=== PATIENT | male | born 1965 | race Caucasian/White ===

== ENCOUNTER → 2018-05-05 | Outpatient (CLI) | payer MEDICARE, OTHER ==
[2018-05-06 16:12] VITALS: BMI 25.9
== END ==
LOC: MNTWWP 12:43
PROVIDERS: ATTEND Family Medicine
DX: R73.09 Other abnormal glucose (principal)
CPT/HCPCS: 97802

== ENCOUNTER 2024-03-10 08:19 | Emergency (ER) | payer MEDICARE, OTHER ==
[2024-03-10 08:25] VITALS: RESP 18; TEMP 98.8
[2024-03-10] MEDS: ONDANSETRON 4 MG/2 ML VIAL IVP STA (08:36)
[2024-03-10] MEDS: SODIUM CHLORIDE 0.9% 1,000 ML IV STA ×2 (08:36→09:59)
[2024-03-10] MEDS: PANTOPRAZOLE 40 MG/10 ML VIAL IVP STA (08:39)
[2024-03-10 08:49] LABS: Basophils % (A) 0 %; Eosinophils # (A) 0.1 k/uL (0-0.7); Eosinophils % (A) 1 %; HCT 43.5 % (39.0-53.0); HGB 14.3 gm/dL (13.0-17.5); Lymphocytes # (A) 0.5 k/uL (1.0-4.8); Lymphocytes % (A) 3 %; MCH 29.8 pg (25.0-35.0); MCHC 32.8 g/dL (31.0-37.0); MCV 90.7 fL (80.0-100.0); Mean Platelet Volume 7.7; Monocytes # (A) 0.5 k/uL (0-1.0); Monocytes % (A) 3 %; Neutrophils # (A) 14.7 k/uL (1.3-7.7); Neutrophils % (A) 92 %; Platelet Count 273 k/uL (150-450); RDW 12.3 % (11.5-15.5); WBC 15.9 k/uL (3.8-10.6)
[2024-03-10 08:56] LABS: ALT 15 U/L (4-49); AST 17 U/L (17-59); African American GFR (CKD) >90 (>60 ml/min/1.73 sqM); Alkaline Phosphatase 92 U/L (38-126); Amylase 44 U/L (30-110); Anion Gap 8 mmol/L; Blood Urea Nitrogen 18 mg/dL (9-20); Calcium 8.8 mg/dL (8.4-10.2); Carbon Dioxide 25 mmol/L (22-30); Chloride 105 mmol/L (98-107); Glucose 160 mg/dL (74-99); Lipase 172 U/L (23-300); Non-African American GFR(CKD) >90 (>60 ml/min/1.73 sqM); Potassium 3.1 mmol/L (3.5-5.1); Sodium 138 mmol/L (137-145); Total Bilirubin 0.3 mg/dL (0.2-1.3); Total Protein 6.6 g/dL (6.3-8.2)
[2024-03-10 09:06] LABS: INR 0.9 (<1.2); Prothrombin Time 9.9 sec (10.0-12.5)
--- NOTE | 2024-03-10 09:11 | ED ---
General Adult HPI - General Chief complaint: Nausea/Vomiting/Diarrhea Stated complaint: NVD Time Seen by Provider: 03/10/24 08:19 Source: patient, EMS, RN notes reviewed, old records reviewed Mode of arrival: EMS - History of Present Illness Initial comments: Patient is a 58-year-old male who presents emergency department complaining of nausea, vomiting, diarrhea for 1 to 2 days. Endorses some mild abdominal discomfort with it. Patient is legally blind. Denies any urinary complaints. Denies chest pain or shortness of breath. No fevers or cough. Denies any si gnificant abdominal pain but just endorses generalized discomfort. As he is blind unknown if his diarrhea or vomit has blood in it. Is not on blood thinners. History of a cholecystectomy as well as hernia repair. EMS noted a rash however it seems to have resolved. - Related Data Home Medications Medication Instructions Recorded Confirmed Cyclobenzaprine [Flexeril] 20 mg PO HS 12/16/13 03/10/24 Imipramine HCl [Tofranil] 50 mg PO HS 12/16/13 03/10/24 Ascorbic Acid [Vitamin C] 1,000 mg PO DAILY 03/10/24 03/10/24 Cholecalciferol [Vitamin D3 (25 50 mcg PO DAILY 03/10/24 03/10/24 Mcg = 1000 Iu)] Pantoprazole [Protonix] 40 mg PO DAILY 03/10/24 03/10/24 Zinc Gluconate [Zinc] 50 mg PO DAILY 03/10/24 03/10/24 Allergies Allergy/AdvReac Type Severity Reaction Status Date / Time codeine AdvReac Vomiting Verified 03/10/24 10:42 Review of Systems ROS Statement: Those systems with pertinent positive or pertinent negative responses have been documented in the HPI. Review of Systems: CONST: Denies fever EYES: Denies blurry vision ENT: Denies nasal congestion C/V: Denies Chest pain RESP: Denies shortness of breath GI: Endorses abdominal pain, nausea, vomiting, diarrhea : Denies dysuria SKIN: Denies rash. MSK: Denies joint pain. NEURO: Denies headache ROS Other: All systems not noted in ROS Statement are negative. Past Medical History Past Medical History: Cancer, CVA/TIA, GERD/Reflux, Prostate Disorder Additional Past Medical History / Comment(s): CVA 2010, occ. arrythmia. slight loss of short term memory, hypoglycemia. prostate cancer (tx with radiation seeds), urinary leakage at night(wears depends) History of Any Multi-Drug Resistant Organisms: None Reported Past Surgical History: Cholecystectomy, Hernia Repair Past Anesthesia/Blood Transfusion Reactions: Motion Sickness Past Psychological History: Depression Smoking Status: Never smoker Past Alcohol Use History: None Reported Past Drug Use History: None Reported - Past Family History Brother(s) Family Medical History: Cancer Mother Family Medical History: Cancer Additional Family Medical History / Comment(s): liver General Exam - General Exam Comments Initial Comments: General: Appears in no acute distress. HEAD: Normal with no signs of head trauma. EYES: Patient legally blind. ENT: Hearing grossly intact, normal oropharynx. Mildly dry mucous membranes. RESPIRATORY: Clear breath sounds bilaterally. No wheezes, rales, or rhonchi. C/V: Regular rate and rhythm. S1 and S2 auscultated, no edema, peripheral pulses 2+ and intact throughout ABD: Abd is soft, nontender, nondistended. No real guarding. No rebound tenderness. No peritoneal signs. EXT: Normal range of motion, no obvious deformity SKIN: No rashes or lesions observed on exposed skin. NEURO: Alert and oriented x 4. Course Vital Signs 03/10/24 03/10/24 03/10/24 08:19 10:00 10:53 Temperature 98.8 F Pulse Rate 85 94 90 Respiratory 18 18 18 Rate Blood Pressure 124/98 134/93 135/92 O2 Sat by Pulse 99 95 98 Oximetry Medical Decision Making - Medical Decision Making Was pt. sent in by a medical professional or institution (, PA, A[employer], urgent care, hospital, or shelter...) When possible be specific @ -No Did you speak to anyone other than the patient for history (EMS, parent, family, police, friend...)? What history was obtained from this source @ -No Did you review nursing and triage notes (agree or disagree)? Why? @ -I reviewed and agree with nursing and triage notes Were old charts reviewed (outside hosp., previous admission, EMS record, old EKG, old radiological studies, urgent care reports/EKG's, shelter records)? Report findings @ -No old charts were reviewed Differential Diagnosis (chest pain, altered mental status, abdominal pain women, abdominal pain men, vaginal bleeding, weakness, fever, dyspnea, syncope, headache, dizziness, GI bleed, back pain, seizure, CVA, palpatations, mental health, musculoskeletal)? @ -Differential Abdominal Pain Men: Appendicitis, cholecystitis, diverticulosis, ischemic bowel, pancreatitis, hepatitis, UTI, gastroenteritis, AAA, incarcerated hernia, bowel obstruction, constipation, inflammatory bowel, hepatitis, peptic ulcer disease, splenic infarction, perforated viscus, testicular torsion, this is not meant to be an all-inclusive list EKG interpreted by me (3pts min.). @ -As above X-rays interpreted by me (1pt min.). @ -None done CT interpreted by me (1pt min.). @ -CT revealed stool throughout the bowels however no evidence of obstruction. U/S interpreted by me (1pt. min.). @ -None done What testing was considered but not performed or refused? (CT, X-rays, U/S, labs)? Why? @ -None What meds were considered but not given or refused? Why? @ -None Did you discuss the management of the patient with other professionals (professionals i.e. , PA, [employer], lab, RT, psych nurse, renal social worker, capacity planner, teacher, fire management officer, director of casework department)? Give summary @ -No Was smoking cessation discussed for >3mins.? @ -No Was critical care preformed (if so, how long)? @ -No Were there social determinants of health that impacted care today? How? (Homelessness, low income, unemployed, alcoholism, drug addiction, transportation, low edu. Level, literacy, decrease access to med. care, group home, rehab)? @ -No Was there de-escalation of care discussed even if they declined (Discuss DNR or withdrawal of care, Hospice)? DNR status @ -No What co-morbidities impacted this encounter? (DM, HTN, Smoking, COPD, CAD, Cancer, CVA, ARF, Chemo, Hep., AIDS, mental health diagnosis, sleep apnea, morbid obesity)? @ -None Was patient admitted / discharged? Hospital course, mention meds given and route, prescriptions, significant lab abnormalities, going to OR and other pertinent info. @ -Patient presents with nausea, vomiting, diarrhea. Mild abdominal discomfort. Will obtain screening EKG, CT abdomen/pelvis as well as abdominal laboratory studies. Patient was in agreement this plan. Vital signs within acc eptable limits. Imaging returned unremarkable. Laboratory studies showed a leukocytosis of 15 which is likely reactive. Patient is also hypokalemic and will be given potassium. Remainder the workup unremarkable. On reevaluation following IV fluids he is feeling improved. We discussed his workup. I believe it is safe for him to be discharged home and he was in agreement this plan. Strict return precautions discussed. I instructed the patient to follow up with their PCP in the next 1-3 days. I explained that the patient should return to the emergency department if they experience any worsening symptoms. Strict return precautions were discussed with the patient. The patient expressed understanding of these instructions. I answered all questions that the patient had. The patient was discharged home in good condition with their prescriptions and follow up information. Undiagnosed new problem with uncertain prognosis? @ -No Drug Therapy requiring intensive monitoring for toxicity (Heparin, Nitro, Insulin, Cardizem)? @ -No Were any procedures done? @ -No Diagnosis/symptom? @ -Nausea and vomiting, diarrhea, hypokalemia Acute, or Chronic, or Acute on Chronic? @ -Acute Uncomplicated (without systemic symptoms) or Complicated (systemic symptoms)? @ -Uncomplicated Side effects of treatment? @ -None Exacerbation, Progression, or Severe Exacerbation] @ -No Poses a threat to life or bodily function? @ -Unlikely at this time - Lab Data Result diagrams: 03/10/24 08:32 03/10/24 08:32 Lab Results 03/10/24 03/10/24 03/10/24 Range/Units 08:32 08:32 08:32 WBC 15.9 H (3.8-10.6) k/uL RBC 4.80 (4.30-5.90) m/uL Hgb 14.3 (13.0-17.5) gm/dL Hct 43.5 (39.0-53.0) % MCV 90.7 (80.0-100.0) fL MCH 29.8 (25.0-35.0) pg MCHC 32.8 (31.0-37.0) g/dL RDW 12.3 (11.5-15.5) % Plt Count 273 (150-450) k/uL MPV 7.7 Neutrophils % 92 % Lymphocytes % 3 % Monocytes % 3 % Eosinophils % 1 % Basophils % 0 % Neutrophils # 14.7 H (1.3-7.7) k/uL Lymphocytes # 0.5 L (1.0-4.8) k/uL Monocytes # 0.5 (0-1.0) k/uL Eosinophils # 0.1 (0-0.7) k/uL Basophils # 0.0 (0-0.2) k/uL PT 9.9 L (10.0-12.5) sec INR 0.9 (<1.2) APTT 21.0 L (22.0-30.0) sec Sodium 138 (137-145) mmol/L Potassium 3.1 L (3.5-5.1) mmol/L Chloride 105 (98-107) mmol/L Carbon Dioxide 25 (22-30) mmol/L Anion Gap 8 mmol/L BUN 18 (9-20) mg/dL Creatinine 0.79 (0.66-1.25) mg/dL Est GFR (CKD-EPI)AfAm >90 (>60 ml/min/1.73 sqM) Est GFR (CKD-EPI)NonAf >90 (>60 ml/min/1.73 sqM) Glucose 160 H (74-99) mg/dL Plasma Lactic Acid Josiah (0.7-2.0) mmol/L Calcium 8.8 (8.4-10.2) mg/dL Total Bilirubin 0.3 (0.2-1.3) mg/dL AST 17 (17-59) U/L ALT 15 (4-49) U/L Alkaline Phosphatase 92 (38-126) U/L Total Protein 6.6 (6.3-8.2) g/dL Albumin 4.0 (3.5-5.0) g/dL Amylase 44 (30-110) U/L Lipase 172 (23-300) U/L Urine Color Urine Appearance (Clear) Urine pH (5.0-8.0) Ur Specific [place] (1.001-1.035) Urine Protein (Negative) Urine Glucose (UA) (Negative) Urine Ketones (Negative) Urine Blood (Negative) Urine Nitrite (Negative) Urine Bilirubin (Negative) Urine Urobilinogen (<2.0) mg/dL Ur Leukocyte Esterase (Negative) Urine WBC (0-5) /hpf Ur Squamous Epith Cells (0-4) /hpf Calcium Oxalate Crystal (None) /hpf Urine Mucus (None) /hpf Influenza Type A (PCR) (Not Detectd) Influenza Type B (PCR) (Not Detectd) RSV (PCR) (Not Detectd) SARS-CoV-2 (PCR) (Not Detectd) 03/10/24 03/10/24 03/10/24 Range/Units 08:32 08:32 09:17 WBC (3.8-10.6) k/uL RBC (4.30-5.90) m/uL Hgb (13.0-17.5) gm/dL Hct (39.0-53.0) % MCV (80.0-100.0) fL MCH (25.0-35.0) pg MCHC (31.0-37.0) g/dL RDW (11.5-15.5) % Plt Count (150-450) k/uL MPV Neutrophils % % Lymphocytes % % Monocytes % % Eosinophils % % Basophils % % Neutrophils # (1.3-7.7) k/uL Lymphocytes # (1.0-4.8) k/uL Monocytes # (0-1.0) k/uL Eosinophils # (0-0.7) k/uL Basophils # (0-0.2) k/uL PT (10.0-12.5) sec INR (<1.2) APTT (22.0-30.0) sec Sodium (137-145) mmol/L Potassium (3.5-5.1) mmol/L Chloride (98-107) mmol/L Carbon Dioxide (22-30) mmol/L Anion Gap mmol/L BUN (9-20) mg/dL Creatinine (0.66-1.25) mg/dL Est GFR (CKD-EPI)AfAm (>60 ml/min/1.73 sqM) Est GFR (CKD-EPI)NonAf (>60 ml/min/1.73 sqM) Glucose (74-99) mg/dL Plasma Lactic Acid Josiah 1.5 (0.7-2.0) mmol/L Calcium (8.4-10.2) mg/dL Total Bilirubin (0.2-1.3) mg/dL AST (17-59) U/L ALT (4-49) U/L Alkaline Phosphatase (38-126) U/L Total Protein (6.3-8.2) g/dL Albumin (3.5-5.0) g/dL Amylase (30-110) U/L Lipase (23-300) U/L Urine Color Light Yellow Urine Appearance Cloudy (Clear) Urine pH 5.0 (5.0-8.0) Ur Specific [place] 1.016 (1.001-1.035) Urine Protein Negative (Negative) Urine Glucose (UA) Negative (Negative) Urine Ketones 1+ H (Negative) Urine Blood Negative (Negative) Urine Nitrite Negative (Negative) Urine Bilirubin Negative (Negative) Urine Urobilinogen <2.0 (<2.0) mg/dL Ur Leukocyte Esterase Negative (Negative) Urine WBC 3 (0-5) /hpf Ur Squamous Epith Cells <1 (0-4) /hpf Calcium Oxalate Crystal Few H (None) /hpf Urine Mucus Many H (None) /hpf Influenza Type A (PCR) Not Detected (Not Detectd) Influenza Type B (PCR) Not Detected (Not Detectd) RSV (PCR) Not Detected (Not Detectd) SARS-CoV-2 (PCR) Not Detected (Not Detectd) - EKG Data -: EKG Interpreted by Me EKG Comments: 12-lead Electrocardiogram Interpretation Note EKG was reviewed and interpreted by myself. 12-lead ECG performed at 0826 is interpreted by me as revealing normal sinus rhythm at a rate of 84 beats per mi nute. Eidson is normal. WI interval is 144 ms, QRS durations 102 ms, QTc is 431 ms.. There were no ST or T wave abnormalities to suggest myocardial ischemia or injury. Nonspecific ST segment and T wave abnormalities. R wave progression across the precordium was satisfactory. By my interpretation this EKG is non- diagnostic for acute ischemia. Disposition Clinical Impression: Nausea & vomiting, Diarrhea, Hypokalemia Disposition: HOME SELF-CARE Condition: Good Instructions (If sedation given, give patient instructions): Acute Nausea and Vomiting (ED), Acute Diarrhea (ED) Is patient prescribed a controlled substance at d/c from ED?: No Referrals: Bret Cobian DO [Primary Care Provider] - 1-2 days Time of Disposition: 10:30
[2024-03-10 09:39] LABS: Appearance,Urine Cloudy (Clear); Bilirubin,Urine Negative (Negative); Blood,Urine Negative (Negative); Calcium Oxalate Crystals,Urine Few /hpf; Color,Urine Light Yellow; Glucose,Urine (UA) Negative (Negative); Ketones,Urine 1+ (Negative); Leukocyte Esterase,Urine Negative (Negative); Mucus,Urine Many /hpf; Nitrite,Urine Negative (Negative); Protein,Urine Negative (Negative); Specific Gravity,Urine 1.016 (1.001-1.035); Squamous Epithelial Cell,Urine <1 /hpf (0-4); Urobilinogen,Urine <2.0 mg/dL (<2.0); WBC,Urine 3 /hpf (0-5)
--- NOTE | 2024-03-10 09:56 | CT ---
EXAMINATION TYPE: CT abdomen pelvis w con CT DLP: 709 mGycm, Automated exposure control for dose reduction was used. DATE OF EXAM: 03/10/2024 9:30 AM COMPARISON: CT abdomen pelvis most recent from CLINICAL INDICATION: Male, 58 years old with history of n/v/diarrhea. discomfort; n/v/diarrhea. disco mfort TECHNIQUE: Axial CT abdomen pelvis w con;Sagittal and coronal reformats were created on a separate w orkstation. Contrast used:100 mL of Isovue 300 with IV Contrast, (none if empty) Oral contrast used: without Oral Contrast (none if empty) FINDINGS: LOWER CHEST: Unremarkable ABDOMEN LIVER: Unremarkable GALLBLADDER AND BILE DUCTS: Gallbladder is surgically absent with mild intrahepatic and extra hepatic biliary dilatation likely physiologic and a postcholecystectomy change. No evidence of choledocholit hiasis. PANCREAS: Unremarkable. SPLEEN: Unremarkable. ADRENAL GLANDS: Unremarkable. KIDNEYS AND URETERS: No evidence of hydronephrosis. No obstructing bilateral 3 mm cuts 5. Right renal cortical cyst. PELVIS BLADDER: Unremarkable REPRODUCTIVE: Brachytherapy beads are present in the prostate gland. ABDOMEN & PELVIS STOMACH AND BOWEL: No evidence of bowel obstruction. Moderate amount stool throughout the colon. Dist ended stomach. PERITONEUM/RETROPERITONEUM: No evidence of pneumoperitoneum or free fluid. VASCULATURE: No evidence of aortic aneurysm. MUSCULOSKELETAL: No acute osseous abnormalities LYMPH NODES: No gross evidence for lymphadenopathy. SOFT TISSUE/ABDOMINAL WALL: Small right fat-containing inguinal hernia. IMPRESSION: 1. Distended stomach with ingested contents. Additionally there is large amount stool in the colon. No evidence for obstruction. No other acute processes definitively visualized. 2. Bilateral nonobstructing renal calculi. [facility], , 03/10/2024 9:54 AM
[2024-03-10] MEDS: POTASSIUM CHLORIDE ER 20 MEQ TAB.ER PO STA (09:59)
[2024-03-10] MEDS: ONDANSETRON 4 MG ODT STARTER PACK 2 TAB BTL PO STA (10:41)
[2024-03-10 10:56] VITALS: BP 135/92; PULSE 90
== END 2024-03-10 10:56 | disposition home or self-care (01) ==
LOC: EC 08:19
CPT/HCPCS: 36415; 74177; 80053; 81001; 82150; 83605; 83690; 85025; 85610; 85730; 87636; 93005; 96361; 96374; 96375; 99285

== ENCOUNTER 2024-03-11 12:41 | Observation (INO) | payer MEDICARE, OTHER ==
--- NOTE | 2024-03-11 12:51 | ED ---
Nausea/Vomiting/Diarrhea HPI - General Stated complaint: NVD Time Seen by Provider: 03/11/24 12:46 Source: RN notes reviewed, old records reviewed - History of Present Illness Initial comments: This is a 58-year-old male to the ER for evaluation patient presents today for evaluation regards to severe nausea vomiting and diarrhea significant malodorous diarrhea here in the emergency department patient was in the ER recently yes terday and is getting worse since that MD complaint: nausea, vomiting, diarrhea -: days(s) Associated Abdominal Pain: Yes Location: diffuse Radiation: none Severity: severe Severity scale (1-10): 9 Quality: cramping, aching Consistency: constant Improves with: none Worsens with: none Associated Symptoms: malaise, nausea/vomiting, weakness - Related Data Home Medications Medication Instructions Recorded Confirmed Cyclobenzaprine [Flexeril] 20 mg PO HS 12/16/13 03/11/24 Imipramine HCl [Tofranil] 50 mg PO HS 12/16/13 03/11/24 Ascorbic Acid [Vitamin C] 1,000 mg PO DAILY 03/10/24 03/11/24 Cholecalciferol [Vitamin D3 (25 50 mcg PO DAILY 03/10/24 03/11/24 Mcg = 1000 Iu)] Pantoprazole [Protonix] 40 mg PO DAILY 03/10/24 03/11/24 Zinc Gluconate [Zinc] 50 mg PO DAILY 03/10/24 03/11/24 Aspirin EC [Ecotrin Low Dose] 81 mg PO DAILY 03/11/24 03/11/24 Ip6 1 tab PO DAILY 03/11/24 03/11/24 Allergies Allergy/AdvReac Type Severity Reaction Status Date / Time codeine AdvReac Vomiting Verified 03/11/24 14:16 Review of Systems ROS Statement: Those systems with pertinent positive or pertinent negative responses have been documented in the HPI. ROS Other: All systems not noted in ROS Statement are negative. Past Medical History Past Medical History: Cancer, CVA/TIA, GERD/Reflux, Prostate Disorder Additional Past Medical History / Comment(s): CVA 2010, occ. arrythmia. slight loss of short term memory, hypoglycemia. prostate cancer (tx with radiation seeds), urinary leakage at night(wears depends) History of Any Multi-Drug Resistant Organisms: None Reported Past Surgical History: Cholecystectomy, Hernia Repair Past Anesthesia/Blood Transfusion Reactions: Motion Sickness Past Psychological History: Depression Smoking Status: Never smoker Past Alcohol Use History: None Reported Past Drug Use History: None Reported - Past Family History Brother(s) Family Medical History: Cancer Mother Family Medical History: Cancer Additional Family Medical History / Comment(s): liver General Exam General appearance: alert, in no apparent distress Head exam: Present: atraumatic, normocephalic, normal inspection Eye exam: Present: normal appearance, PERRL, EOMI. Absent: scleral icterus, conjunctival injection, periorbital swelling ENT exam: Present: normal exam, mucous membranes moist Neck exam: Present: normal inspection. Absent: tenderness, meningismus, lymphadenopathy Respiratory exam: Present: normal lung sounds bilaterally. Absent: respiratory distress, wheezes, rales, rhonchi, stridor Cardiovascular Exam: Present: regular rate, normal rhythm, normal heart sounds. Absent: systolic murmur, diastolic murmur, rubs, gallop, clicks GI/Abdominal exam: Present: soft, normal bowel sounds. Absent: distended, tenderness, guarding, rebound, rigid Extremities exam: Present: normal inspection, full ROM, normal capillary refill. Absent: tenderness, pedal edema, joint swelling, calf tenderness Back exam: Present: normal inspection Neurological exam: Present: alert, oriented X3, CN II-XII intact Psychiatric exam: Present: normal affect, normal mood Skin exam: Present: warm, dry, intact, normal color. Absent: rash Course Vital Signs 03/11/24 03/11/24 03/11/24 12:48 14:00 16:00 Temperature 97 F L Pulse Rate 90 89 93 Respiratory 18 18 17 Rate Blood Pressure 126/75 130/88 131/89 O2 Sat by Pulse 98 98 98 Oximetry 03/11/24 03/11/24 19:27 21:28 Temperature 98.5 F Pulse Rate 88 89 Respiratory 18 18 Rate Blood Pressure 131/77 120/83 O2 Sat by Pulse 99 96 Oximetry - Reevaluation(s) Reevaluation #1: 03/11/24 13:05 Medical records reviewed Reevaluation #2: 03/11/24 16:10 Patient symptoms unchanged here in the ER Reevaluation #3: 03/11/24 16:10 Results and questions answered Reevaluation #4: Was pt. sent in by a medical professional or institution (Dr., PA, WILDLIFE CONSERVATION PROFESSOR, urgent care, hospital, or longterm...) When possible be specific @ -no Did you speak to anyone other than the patient for history (EMS, parent, family, police, friend...)? What history was obtained from this source @ -no Did you review nursing and triage notes (agree or disagree)? Why? @ -agree Are old charts reviewed (outside hosp., previous admission, EMS record, old EKG, old radiological studies, urgent care reports/EKG's, longterm records)? Report findings @ -yes Differential Diagnosis (chest pain, altered mental status, abdominal pain women, abdominal pain men, vaginal bleeding, weakness, fever, dyspnea, syncope, headache, dizziness, GI bleed, back pain, seizure, CVA, palpatations, mental health, musculoskeletal)? @ -prior EKG interpreted by me (3pts min.). @ -yes X-rays interpreted by me (1pt min.). @ -no CT interpreted by me (1pt min.). @ -Yes enteritis U/S interpreted by me (1pt. min.). @ -no What testing was considered but not performed or refused? (CT, X-rays, U/S, labs)? Why? @ -none What meds were considered but not given or refused? Why? @ -none Did you discuss the management of the patient with other professionals (professionals i.e. NARCISO Eisenberg, WILDLIFE CONSERVATION PROFESSOR, lab, RT, psych nurse, director social, environmental health manager, teacher, operations officer afloat, keycase assembler)? Give summary @ -no Was smoking cessation discussed for >3mins.? @ -no Was critical care preformed (if so, how long)? @ -no Were there social determinants of health that impacted care today? How? (Homelessness, low income, unemployed, alcoholism, drug addiction, transport ation, low edu. Level, literacy, decrease access to med. care, prison, rehab)? @ -none Was there de-escalation of care discussed even if they declined (Discuss DNR or withdrawal of care, Hospice)? DNR status @ -no What co-morbidities impacted this encounter? (DM, HTN, Smoking, COPD, CAD, Cancer, CVA, ARF, Chemo, Hep., AIDS, mental health diagnosis, sleep apnea, morbid obesity)? @ -none Was patient admitted / discharged? Hospital course, mention meds given and route, prescriptions, significant lab abnormalities, going to OR and other pertinent info. @ - 58 male to ER for evaluation will admit for severe diarrhea, intractable diarrhea and worsening symptoms at home Admitted Undiagnosed new problem with uncertain prognosis? @ -no Drug Therapy requiring intensive monitoring for toxicity (Heparin, Nitro, Insulin, Cardizem)? @ -no Were any procedures done? @ -no Diagnosis/symptom? @ -Nausea vomiting diarrhea dehydration repeat evaluations Acute, or Chronic, or Acute on Chronic? @ -Acute Uncomplicated (without systemic symptoms) or Complicated (systemic symptoms)? @ -Complicated Side effects of treatment? @ -no Exacerbation, Progression, or Severe Exacerbation? @ -exacerbation Poses a threat to life or bodily function? How? (Chest pain, USA, DC, pneumonia, PE, COPD, DKA, ARF, appy, cholecystitis, CVA, Diverticulitis, Homicidal, Suicidal, threat to staff... and all critical care pts) @ -yes comorbid conditions and extreme of age Reevaluation #5: Differential Abdominal Pain Men: Appendicitis, cholecystitis, diverticulosis, ischemic bowel, pancreatitis, hepatitis, UTI, gastroenteritis, AAA, incarcerated hernia, bowel obstruction, constipation, inflammatory bowel, hepatitis, peptic ulcer disease, splenic infarction, perforated viscus, testicular torsion, this is not meant to be an all-inclusive list Medical Decision Making - Medical Decision Making 58 male to ER for evaluation will admit for severe diarrhea, intractable diarrhea and worsening symptoms at home - Lab Data Result diagrams: 03/12/24 03:50 03/12/24 03:50 Lab Results 03/11/24 03/11/24 03/11/24 Range/Units 12:57 12:57 12:57 WBC 8.6 (3.8-10.6) k/uL RBC 4.62 (4.30-5.90) m/uL Hgb 14.0 (13.0-17.5) gm/dL Hct 40.9 (39.0-53.0) % MCV 88.6 (80.0-100.0) fL MCH 30.3 (25.0-35.0) pg MCHC 34.2 (31.0-37.0) g/dL RDW 12.6 (11.5-15.5) % Plt Count 271 (150-450) k/uL MPV 8.4 Neutrophils % 88 % Lymphocytes % 5 % Monocytes % 6 % Eosinophils % 1 % Basophils % 0 % Neutrophils # 7.5 (1.3-7.7) k/uL Lymphocytes # 0.4 L (1.0-4.8) k/uL Monocytes # 0.5 (0-1.0) k/uL Eosinophils # 0.1 (0-0.7) k/uL Basophils # 0.0 (0-0.2) k/uL PT 10.3 (10.0-12.5) sec INR 0.9 (<1.2) APTT 21.1 L (22.0-30.0) sec Sodium 137 (137-145) mmol/L Potassium 3.3 L (3.5-5.1) mmol/L Chloride 106 (98-107) mmol/L Carbon Dioxide 23 (22-30) mmol/L Anion Gap 8 mmol/L BUN 14 (9-20) mg/dL Creatinine 0.74 (0.66-1.25) mg/dL Est GFR (CKD-EPI)AfAm >90 (>60 ml/min/1.73 sqM) Est GFR (CKD-EPI)NonAf >90 (>60 ml/min/1.73 sqM) Glucose 154 H (74-99) mg/dL Calcium 9.1 (8.4-10.2) mg/dL Phosphorus 2.6 (2.5-4.5) mg/dL Magnesium 1.5 L (1.6-2.3) mg/dL Total Bilirubin 0.6 (0.2-1.3) mg/dL AST 17 (17-59) U/L ALT 13 (4-49) U/L Alkaline Phosphatase 85 (38-126) U/L Troponin I (0.000-0.034) ng/mL NT-Pro-B Natriuret Pep 179 pg/mL Total Protein 6.4 (6.3-8.2) g/dL Albumin 3.9 (3.5-5.0) g/dL Lipase 96 (23-300) U/L 03/11/24 Range/Units 12:57 WBC (3.8-10.6) k/uL RBC (4.30-5.90) m/uL Hgb (13.0-17.5) gm/dL Hct (39.0-53.0) % MCV (80.0-100.0) fL MCH (25.0-35.0) pg MCHC (31.0-37.0) g/dL RDW (11.5-15.5) % Plt Count (150-450) k/uL MPV Neutrophils % % Lymphocytes % % Monocytes % % Eosinophils % % Basophils % % Neutrophils # (1.3-7.7) k/uL Lymphocytes # (1.0-4.8) k/uL Monocytes # (0-1.0) k/uL Eosinophils # (0-0.7) k/uL Basophils # (0-0.2) k/uL PT (10.0-12.5) sec INR (<1.2) APTT (22.0-30.0) sec Sodium (137-145) mmol/L Potassium (3.5-5.1) mmol/L Chloride (98-107) mmol/L Carbon Dioxide (22-30) mmol/L Anion Gap mmol/L BUN (9-20) mg/dL Creatinine (0.66-1.25) mg/dL Est GFR (CKD-EPI)AfAm (>60 ml/min/1.73 sqM) Est GFR (CKD-EPI)NonAf (>60 ml/min/1.73 sqM) Glucose (74-99) mg/dL Calcium (8.4-10.2) mg/dL Phosphorus (2.5-4.5) mg/dL Magnesium (1.6-2.3) mg/dL Total Bilirubin (0.2-1.3) mg/dL AST (17-59) U/L ALT (4-49) U/L Alkaline Phosphatase (38-126) U/L Troponin I <0.012 (0.000-0.034) ng/mL NT-Pro-B Natriuret Pep pg/mL Total Protein (6.3-8.2) g/dL Albumin (3.5-5.0) g/dL Lipase (23-300) U/L - EKG Data -: EKG Interpreted by Me (EKG is sinus 90 OH 166 QRS 103 QTc 449) Disposition Clinical Impression: Dehydration, Gastroenteritis, Nausea & vomiting, Diarrhea, Blind Disposition: ADMITTED IP TO THIS [facility] Condition: Fair Is patient prescribed a controlled substance at d/c from ED?: No Time of Disposition: 16:00
[2024-03-11] MEDS: SODIUM CHLORIDE 0.9% 500 ML 500 ML IV STA (13:03)
[2024-03-11] MEDS: SODIUM CHLORIDE 0.9% 1,000 ML IV STA ×2 (13:03→15:04)
[2024-03-11] MEDS: ONDANSETRON 4 MG/2 ML VIAL IVP STA (13:03)
[2024-03-11 13:32] LABS: Basophils % (A) 0 %; Eosinophils # (A) 0.1 k/uL (0-0.7); Eosinophils % (A) 1 %; HCT 40.9 % (39.0-53.0); Lymphocytes # (A) 0.4 k/uL (1.0-4.8); Lymphocytes % (A) 5 %; MCH 30.3 pg (25.0-35.0); MCHC 34.2 g/dL (31.0-37.0); MCV 88.6 fL (80.0-100.0); Mean Platelet Volume 8.4; Monocytes # (A) 0.5 k/uL (0-1.0); Monocytes % (A) 6 %; Neutrophils # (A) 7.5 k/uL (1.3-7.7); Neutrophils % (A) 88 %; Platelet Count 271 k/uL (150-450); RBC 4.62 m/uL (4.30-5.90); RDW 12.6 % (11.5-15.5); WBC 8.6 k/uL (3.8-10.6)
[2024-03-11 13:39] LABS: ALT 13 U/L (4-49); AST 17 U/L (17-59); African American GFR (CKD) >90 (>60 ml/min/1.73 sqM); Albumin 3.9 g/dL (3.5-5.0); Alkaline Phosphatase 85 U/L (38-126); Anion Gap 8 mmol/L; Blood Urea Nitrogen 14 mg/dL (9-20); Calcium 9.1 mg/dL (8.4-10.2); Carbon Dioxide 23 mmol/L (22-30); Chloride 106 mmol/L (98-107); Glucose 154 mg/dL (74-99); INR 0.9 (<1.2); Lipase 96 U/L (23-300); Magnesium 1.5 mg/dL (1.6-2.3); Non-African American GFR(CKD) >90 (>60 ml/min/1.73 sqM); Partial Thromboplastin Time 21.1 sec (22.0-30.0); Phosphorus 2.6 mg/dL (2.5-4.5); Potassium 3.3 mmol/L (3.5-5.1); Prothrombin Time 10.3 sec (10.0-12.5); Sodium 137 mmol/L (137-145); Total Bilirubin 0.6 mg/dL (0.2-1.3); Total Protein 6.4 g/dL (6.3-8.2)
[2024-03-11 13:47] LABS: NT-Pro-B-Type Natriuretic Pept 179 pg/mL
[2024-03-11] MEDS: POTASSIUM CHLORIDE 20 MEQ in WATER FOR INJECTION 1 100ML.BAG IVPB STA (15:07)
[2024-03-11] MEDS: MAGNESIUM SULFATE-D5W PMX 1 GM in DEXTROSE/WATER 1 100ML.BAG IVPB SCH (15:08)
[2024-03-11] MEDS: POTASSIUM BICARBONATE/CIT AC 20 MEQ TABLET.EFF PO ONE (15:08)
[2024-03-11] MEDS: MAGNESIUM OXIDE 400 MG TAB PO STA ×2 (15:09)
[2024-03-11] MEDS ORDERED: HYDROmorphone 1 MG/ML 1 ML SYRINGE IVP PRN (16:01)
[2024-03-11] MEDS ORDERED: NALOXONE 0.4 MG/ML 1 ML VIAL IV PRN (16:01)
[2024-03-11] MEDS: SODIUM CHLORIDE 0.9% 1,000 ML IV SCH (16:03)
[2024-03-11 16:47] LABS: Appearance,Urine Clear (Clear); Bilirubin,Urine Negative (Negative); Blood,Urine Negative (Negative); Color,Urine Colorless; Glucose,Urine (UA) Negative (Negative); Ketones,Urine Negative (Negative); Leukocyte Esterase,Urine Negative (Negative); Nitrite,Urine Negative (Negative); PH, Urine 5.5 (5.0-8.0); Protein,Urine Negative (Negative); Specific Gravity,Urine 1.013 (1.001-1.035); Urobilinogen,Urine <2.0 mg/dL (<2.0)
--- NOTE | 2024-03-11 17:32 | CT ---
EXAMINATION TYPE: CT abdomen pelvis w con CT DLP: 708.5 mGycm, Automated exposure control for dose reduction was used. DATE OF EXAM: 03/11/2024 5:00 PM COMPARISON: CT abdomen pelvis most recent from 03/10/2024 CLINICAL INDICATION: Male, 58 years old with history of NVD; diarrhea TECHNIQUE: Axial CT abdomen pelvis w con;Sagittal and coronal reformats were created on a separate w orkstation. Contrast used:100 mL of Isovue 300 with IV Contrast, (none if empty) Oral contrast used: without Oral Contrast (none if empty) FINDINGS: LOWER CHEST: Unremarkable ABDOMEN LIVER: Unremarkable GALLBLADDER AND BILE DUCTS: Gallbladder is surgically absent with mild intrahepatic and extra hepatic biliary dilatation likely physiologic and a postcholecystectomy change. No evidence of choledocholit hiasis. PANCREAS: Unremarkable. SPLEEN: Unremarkable. ADRENAL GLANDS: Unremarkable. KIDNEYS AND URETERS: Bilateral renal calculi measuring up to 5 mm in the right and 4 mm on the left. No evidence for obstructive uropathy. PELVIS BLADDER: Unremarkable REPRODUCTIVE: Brachytherapy beads present. ABDOMEN & PELVIS STOMACH AND BOWEL: Small hiatal hernia. No evidence of bowel obstruction. Mild hyperemia of the colon with large stool throughout the colon.. PERITONEUM/RETROPERITONEUM: No evidence of pneumoperitoneum or free fluid. VASCULATURE: No evidence of aortic aneurysm. MUSCULOSKELETAL: No acute osseous abnormalities LYMPH NODES: No gross evidence for lymphadenopathy. SOFT TISSUE/ABDOMINAL WALL: Fat-containing umbilical hernia. IMPRESSION: 1. Findings not significantly changed from one day prior. Watery stool throughout the colon with hyp eremia of the mucosa of the colon correlate for colitis. No evidence for obstruction. No other acute abdominal process. 2. Small hiatal hernia. 3. Nonobstructive bilateral renal calculi. 4. Simple appearing right renal cortical cyst. [facility], , 03/11/2024 5:29 PM
[2024-03-12 02:21] VITALS: RESP 18
[2024-03-12 08:35] LABS: Basophils # (A) 0.02 X 10*3/uL (0.00-0.10); Basophils % (A) 0.3 %; Eosinophils # (A) 0.19 X 10*3/uL (0.04-0.35); Eosinophils % (A) 2.8 %; HCT 36.4 % (39.6-50.0); HGB 12.2 g/dL (13.0-17.0); Lymphocytes # (A) 0.68 X 10*3/uL (0.90-5.00); Lymphocytes % (A) 10.1 %; MCH 29.7 pg (27.0-32.0); MCHC 33.5 g/dL (32.0-37.0); MCV 88.6 FL (80.0-97.0); Mean Platelet Volume 10.7 FL (9.5-12.2); Monocytes % (A) 13.4 %; NRBC Per 100 WBC 0 X 10*3/uL (0.00-0.01); Neutrophils # (A) 4.93 X 10*3/uL (1.80-7.70); Neutrophils % (A) 73.3 %; Platelet Count 244 X 10*3/uL (140-440); RBC 4.11 X 10*6/uL (4.40-5.60); RDW 11.9 % (11.5-14.5); WBC 6.73 X 10*3/uL (4.50-10.00)
[2024-03-12 08:41] LABS: ALT 11 U/L (10-49); AST 11 U/L (14-35); Albumin 3.6 g/dL (3.8-4.9); Alkaline Phosphatase 81 U/L (41-126); BUN/Creat Ratio 12.43 Ratio (12.00-20.00); Blood Urea Nitrogen 8.7 mg/dL (9.0-27.0); Calcium 8.2 mg/dL (8.7-10.3); Carbon Dioxide 23.5 mmol/L (21.6-31.8); Chloride 105 mmol/L (96-109); Glucose 88 mg/dL (70-110); Phosphorus 2.5 mg/dL (2.4-5.1); Potassium 3.4 mmol/L (3.5-5.5); Sodium 139 mmol/L (135-145); Total Bilirubin 0.4 mg/dL (0.3-1.2); Total Protein 5.6 g/dL (6.2-8.2)
[2024-03-12] MEDS ORDERED: [UNRECOGNIZED DRUG - OTHER] PO SCH (09:00)
[2024-03-12] MEDS: ASPIRIN 81 MG PO SCH (09:59)
[2024-03-12] MEDS: ASCORBIC ACID 500 MG TAB PO SCH (10:00)
[2024-03-12] MEDS: ENOXAPARIN 40 MG/0.4 ML SYRINGE SQ SCH (10:00)
[2024-03-12] MEDS: POTASSIUM CHLORIDE ER 20 MEQ TAB.ER PO STA (10:00)
[2024-03-12] MEDS: CHOLECALCIFEROL 25 MCG (1000 IU) TABLET PO SCH (10:00)
[2024-03-12] MEDS: ZINC SULFATE 220 MG CAP PO SCH (10:00)
[2024-03-12] MEDS: PANTOPRAZOLE 40 MG TABLET PO SCH (10:00)
[2024-03-12 10:24] LABS: Glucose,Whole Blood 95 mg/dL (70-110)
[2024-03-12] MEDS: ONDANSETRON 4 MG/2 ML VIAL IVP PRN (10:30)
--- NOTE | 2024-03-12 13:41 | P.HPIM ---
History of Present Illness Chief complaint: Nausea and vomiting History of present illness; 58-year-old male with a past medical history of prostate cancer, CVA, and GERD presents with nausea, vomiting, and diarrhea. Of note the patient was seen in the ED yesterday for similar symptoms but per the patient his nausea and vomiting have only continued to get worse. Patient states he is legally blind so is not able to see the contents of the diarrhea to characterize the quality or if there is blood present in the stool. Patient reports his symptoms started 2 to 3 days ago with soft stools that eventually turned into full-fledged diarrhea. At that time patient went to the ED and was seen but was discharged from the ED. When he returned home the diarrhea continued as well as the nausea but the patient also started having several episodes of dry heaving. With this constellation of symptoms and nothing seeming to improve the patient decided to return to the ED. Patient denies abdominal pain, chest pain, shortness of breath, fever, headache, pain with urination, and lower extremity swelling. Initial lab work from the ER was significant for WBC 8.6, hemoglobin 14, MCV 88.6, sodium 137, potassium 3.3, glucose 154, magnesium 1.5, troponin less than 0.012, lipase 96, UA noncontributory, and C. difficile EIA negative. EKG done in the ER showed heart rate of 30 bpm, no ST segment elevation or depression seen, no T-wave inversions seen. Sinus rhythm with occasional supraventricular premature complexes, moderate ST depression, QTc 401. ER CT ABD: Watery stool throughout the colon with hyperemia of the mucosa, no evidence for obstruction, no acute abdominal process, small hiatal hernia, nonobstructive bilateral renal calculi, and simple appearing right renal cortical cyst. Patient admitted to internal medicine service REVIEW OF SYSTEMS: CONSTITUTIONAL: No fever, no malaise, no fatigue. HEENT: No recent visual problems or hearing problems. Denied any sore throat. CARDIOVASCULAR: No chest pain, orthopnea, PND, no palpitations, no syncope. PULMONARY: No shortness of breath, no cough, no hemoptysis. GASTROINTESTINAL: Admits to diarrhea, nausea, vomiting but no abdominal pain. NEUROLOGICAL: No headaches, no weakness, no numbness. HEMATOLOGICAL: Denies any bleeding or petechiae. GENITOURINARY: Denies any burning micturition, frequency, or urgency. MUSCULOSKELETAL/RHEUMATOLOGICAL: Denies any joint pain, swelling, or any muscle pain. ENDOCRINE: Denies any polyuria or polydipsia. The rest of the 14-point review of systems is negative. PHYSICAL EXAMINATION: GENERAL: The patient is alert and oriented x3, not in any acute distress. Well developed, well nourished. HEENT: Pupils are round and equally reacting to light. EOMI. No scleral icterus. No conjunctival pallor. Normocephalic, atraumatic. No pharyngeal erythema. No thyromegaly. CARDIOVASCULAR: S1 and S2 present. No murmurs, rubs, or gallops. PULMONARY: Chest is clear to auscultation b/l, no wheezing or crackles. ABDOMEN: Soft, nontender, nondistended, normoactive bowel sounds. No palpable organomegaly. MUSCULOSKELETAL: No joint swelling or deformity. EXTREMITIES: No cyanosis, clubbing, or pedal edema. NEUROLOGICAL: Gross neurological examination did not reveal any focal deficits. SKIN: No rashes. Assessment & Plan: Acute: #Intractable diarrhea: Potentially viral versus medication side effect versus unknown etiology Patient reports he is feeling much better today, not nearly as nauseous and no further episodes of vomiting or diarrhea Will progress diet to regular diet at lunchtime and see how the patient does Continue NS 130 cc/h Continue to monitor BMP #Hypokalemia: Potassium 3.3 on admission Repleted with 40 mg p.o. potassium Continue to monitor #Anemia: Hemoglobin 12.2 on admission Continue to monitor CBC Chronic: #GERD: Continue home Protonix 40 mg p.o. daily F: NS 130 cc/h E: Magnesium N: Clear liquid A: Normally ambulates unassisted DVT ppx: Lovenox 40 SQ daily GI ppx: Protonix 40 mg p.o. daily Dispo: Pending clinical course Neto Fang MD PGY-1 FM Dictation was produced using [employer]rot[employer] dictation software. please excuse any grammatical, word or spelling errors. Past Medical History Past Medical History: Cancer, CVA/TIA, GERD/Reflux, Prostate Disorder Additional Past Medical History / Comment(s): CVA 2010, occ. arrythmia. slight loss of short term memory, hypoglycemia. prostate cancer (tx with radiation seeds), urinary leakage at night(wears depends) History of Any Multi-Drug Resistant Organisms: None Reported Past Surgical History: Cholecystectomy, Hernia Repair Past Anesthesia/Blood Transfusion Reactions: Motion Sickness Past Psychological History: Depression Smoking Status: Never smoker Past Alcohol Use History: None Reported Past Drug Use History: None Reported - Past Family History Brother(s) Family Medical History: Cancer Mother Family Medical History: Cancer Additional Family Medical History / Comment(s): liver Medications and Allergies Home Medications Medication Instructions Recorded Confirmed Type Cyclobenzaprine [Flexeril] 20 mg PO HS 12/16/13 03/11/24 History Imipramine HCl [Tofranil] 50 mg PO HS 12/16/13 03/11/24 History Ascorbic Acid [Vitamin C] 1,000 mg PO DAILY 03/10/24 03/11/24 History Cholecalciferol [Vitamin D3 (25 50 mcg PO DAILY 03/10/24 03/11/24 History Mcg = 1000 Iu)] Pantoprazole [Protonix] 40 mg PO DAILY 03/10/24 03/11/24 History Zinc Gluconate [Zinc] 50 mg PO DAILY 03/10/24 03/11/24 History Aspirin EC [Ecotrin Low Dose] 81 mg PO DAILY 03/11/24 03/11/24 History Ip6 1 tab PO DAILY 03/11/24 03/11/24 History Allergies Allergy/AdvReac Type Severity Reaction Status Date / Time codeine AdvReac Vomiting Verified 03/11/24 14:16 Physical Exam Vitals: Vital Signs Temp Pulse Pulse Resp BP BP Pulse Ox 03/12/24 07:25 98.0 F 83 18 125/70 98 03/12/24 01:02 98 F 89 18 154/86 99 03/11/24 22:06 97.6 F 100 21 135/83 100 03/11/24 21:28 89 18 120/83 96 03/11/24 19:27 98.5 F 88 18 131/77 99 03/11/24 16:00 93 17 131/89 98 03/11/24 14:00 89 18 130/88 98 03/11/24 12:48 97 F L 90 18 126/75 98 Intake and Output 03/11/24 03/12/24 03/12/24 22:59 06:59 14:59 Other: # Voids 2 Weight 63.049 kg Results CBC & Chem 7: 03/12/24 03:50 03/12/24 03:50 Labs: Abnormal Lab Results - Last 24 Hours (Table) 03/11/24 03/11/24 03/11/24 Range/Units 12:57 12:57 12:57 Lymphocytes # 0.4 L (1.0-4.8) k/uL APTT 21.1 L (22.0-30.0) sec Potassium 3.3 L (3.5-5.1) mmol/L Glucose 154 H (74-99) mg/dL Magnesium 1.5 L (1.6-2.3) mg/dL Thrombosis Risk Factor Assmnt - Choose All That Apply Any of the Below Risk Factors Present?: Yes Each Factor Represents 1 point: Age 41-60 years Other Risk Factors: No Other congenital or acquired thrombophilia - If yes, enter type in comment: No Thrombosis Risk Factor Assessment Total Risk Factor Score: 1 Thrombosis Risk Factor Assessment Level: Low Risk
[2024-03-12 14:08] VITALS: BP 138/89; PULSE 81; TEMP 98.2
--- NOTE | 2024-03-12 17:34 | P.DS ---
Providers Date of admission: 03/11/24 16:02 Attending physician: Miquel Salazar Primary care physician: Bret [facility] Hospital Course: Discharge Diagnosis: Intractable diarrhea, potentially viral gastroenteritis Hypokalemia Anemia GERD Hospital Course: Chief complaint: Nausea and vomiting History of present illness; 58-year-old male with a past medical history of prostate cancer, CVA, and GERD presents with nausea, vomiting, and diarrhea. Of note the patient was seen in the ED yesterday for similar symptoms but per the patient his nausea and vomiting have only continued to get worse. Patient states he is legally blind so is not able to see the contents of the diarrhea to characterize the quality or if there is blood present in the stool. Patient reports his symptoms started 2 to 3 days ago with soft stools that eventually turned into full-fledged diarrhea. At that time patient went to the ED and was seen but was discharged from the ED. When he returned home the diarrhea continued as well as the nausea but the patient also started having several episodes of dry heaving. With this constellation of symptoms and nothing seeming to improve the patient decided to return to the ED. Patient denies abdominal pain, chest pain, shortness of breath, fever, headache, pain with urination, and lower extremity swelling. Initial lab work from the ER was significant for WBC 8.6, hemoglobin 14, MCV 88.6, sodium 137, potassium 3.3, glucose 154, magnesium 1.5, troponin less than 0.012, lipase 96, UA noncontributory, and C. difficile EIA negative. EKG done in the ER showed heart rate of 30 bpm, no ST segment elevation or depression seen, no T-wave inversions seen. Sinus rhythm with occasional supraventricular premature complexes, moderate ST depression, QTc 401. ER CT ABD: Watery stool throughout the colon with hyperemia of the mucosa, no evidence for obstruction, no acute abdominal process, small hiatal hernia, nonobstructive bilateral renal calculi, and simple appearing right renal cortical cyst. While admitted the patient received IV fluids, antinausea medication, and potassium replacement. Patient was found to have a slightly low potassium on admission so the electrolyte was repleted. On the day of discharge patient reported his symptoms of nausea vomiting and diarrhea had subsided and that he was feeling significantly better. Patient was able to tolerate a regular diet without having any of the similar GI symptoms that he presented with initially. Potentially the patient had viral gastroenteritis considering his symptoms improved with fluids and antinausea medication. Patient is medically and hemodynamically stable for discharge to home. Patient is advised to follow-up with his primary care after discharge. Pt seen and examined at bedside: Patient is seen sitting on the side of the bed enjoying lunch and excited about the prospect of going home. Vital signs reveiwed and stable: General: non toxic, no distress, appears at stated age, normal weight Derm: no unusual rashes/lesions, warm Head: atraumatic, normocephalic, symmetric Eyes: EOMI, no lid lag, anicteric sclera, pupils equal round reactive to light ENT: Nose and ears atraumatic Neck: No cervical lymphadenopathy, trachea midline, supple Mouth: no lip lesion, mucus membranes moist Cardiovascular: S1S2 reg, no murmur, positive dorsalis pedis pulse bilateral, no edema Lungs: Decreased air entry bilaterally, no rhonchi, no rales, no accessory muscle use Abdominal: soft, nontender to palpation, no guarding Ext: muscle strength 5 out of 5 in all 4 extremities grossly, no gross muscle atrophy, no contractures, Neuro: CN II-XI grossly intact, no gross focal neuro deficits Psych: Alert, oriented, appropriate affect A total of greater than 30 minutes were spent preparing this complex discarge summary. Patient was discharged on March 12, 2024, 1:38 PM Patient Condition at Discharge: Fair Plan - Discharge Summary Discharge Rx Participant: No New Discharge Prescriptions: Continue Imipramine HCl [Tofranil] 50 mg PO HS Cyclobenzaprine [Flexeril] 20 mg PO HS Ascorbic Acid [Vitamin C] 1,000 mg PO DAILY Ip6 1 tab PO DAILY Aspirin EC [Ecotrin Low Dose] 81 mg PO DAILY Zinc Gluconate [Zinc] 50 mg PO DAILY Cholecalciferol [Vitamin D3 (25 Mcg = 1000 Iu)] 50 mcg PO DAILY Pantoprazole [Protonix] 40 mg PO DAILY Discharge Medication List Cyclobenzaprine [Flexeril] 20 mg PO HS 12/16/13 [History] Imipramine HCl [Tofranil] 50 mg PO HS 12/16/13 [History] Ascorbic Acid [Vitamin C] 1,000 mg PO DAILY 03/10/24 [History] Cholecalciferol [Vitamin D3 (25 Mcg = 1000 Iu)] 50 mcg PO DAILY 03/10/24 [History] Pantoprazole [Protonix] 40 mg PO DAILY 03/10/24 [History] Zinc Gluconate [Zinc] 50 mg PO DAILY 03/10/24 [History] Aspirin EC [Ecotrin Low Dose] 81 mg PO DAILY 03/11/24 [History] Ip6 1 tab PO DAILY 03/11/24 [History] Follow up Appointment(s)/Referral(s): Bret Cobian DO [Primary Care Provider] - 1-2 days (Office will call you with your appointment date and time.) Patient Instructions/Handouts: Gastroenteritis (DC) Activity/Diet/Wound Care/Special Instructions: Diet: Regular diet as tolerated Activity: no restrictions Discharge Disposition: HOME SELF-CARE
[2024-03-12] MEDS ORDERED: CYCLOBENZAPRINE 10 MG TAB PO SCH (21:00)
[2024-03-12] MEDS ORDERED: IMIPRAMINE 25 MG TAB PO SCH (21:00)
[2024-03-13] MEDS ORDERED: PANTOPRAZOLE 40 MG TABLET PO SCH (07:30)
== END 2024-03-12 14:49 | disposition home or self-care (01) ==
LOC: EC 12:41 → 6NMEDSUR 16:02 → 4SSUR 18:01
PROVIDERS: ADMIT Hospitalist; ATTEND Hospitalist
DX: R19.7 Diarrhea, unspecified (principal); R11.2 Nausea with vomiting, unspecified; E87.6 Hypokalemia; E86.0 Dehydration; D64.9 Anemia, unspecified; K21.9 Gastro-esophageal reflux disease without esophagitis; H54.8 Legal blindness, as defined in USA; Z86.73 Personal history of transient ischemic attack (TIA), and cerebral infarction without residual deficits; Z88.5 Allergy status to narcotic agent; Z79.899 Other long term (current) drug therapy; Z79.82 Long term (current) use of aspirin
CPT/HCPCS: 96376; 96372; 96361; 96365; 96366; 96367; 96375; 99285; 36415; 93005; 83880; 80053 ×2; 83690; 83735 ×2; 84100 ×2; 84484; 85025 ×2; 85610; 85730; 81003; 87324; 74177; G0378 ×3; J3480; J2405 ×2; J1650; J3475; Q9967